=== PATIENT | female | born 1980 | race Caucasian/White ===

== ENCOUNTER → 2017-05-12 | Outpatient (REF) ==
[~2017-05-12] MED LIST: AMOX875T60 PO; CITA10SO7 PO; CYC10 PO; DIA5 PO; HYDR-4309 PO; IBU800 PO; LEV75 PO; LEVO100T95 PO; LOR5 PO; METR-1 PO; NOR5/325 PO; PAR20 PO; PRE20 PO; PROM-110 PO
[2017-05-12 06:35] LABS: LDL CHOLESTEROL 125 mg/dl
== END ==
DX: Z02.9 Encounter for administrative examinations, unspecified (principal)
CPT/HCPCS: 36415

== ENCOUNTER → 2017-09-04 | Outpatient (CLI) | payer OTHER | LOC: LAB 06:38 | PROVIDERS: ATTEND Nurse Practitioner Psychiatric/Mental Health | DX: E03.9 Hypothyroidism, unspecified (principal); R53.83 Other fatigue | CPT/HCPCS: 36415; 82306; 84439; 84480 ==